=== PATIENT | male | born 1960 | race Caucasian/White ===

== ENCOUNTER 2021-11-02 15:35 | Observation (INO) | payer OTHER ==
[2021-11-02] MEDS ORDERED: CALCIUM GLUCONATE 10% - 1,000 MG/10 ML VIAL IVPUSH ONE (16:36)
[2021-11-02] MEDS ORDERED: CALCIUM GLUC IN NACL, ISO-OSM 1 GM/50 ML BAG IVPB ONE (16:41)
[2021-11-02] MEDS ORDERED: ACETAMINOPHEN 1000 MG/100 ML BAG IVPB ONE (16:57)
[2021-11-02 17:14] LABS: BASO % 0.9 % (0-2.0); EOS % 1.1 % (0-4.5); HEMATOCRIT 36.3 % (35.4-49); HEMOGLOBIN 12.4 GM/dL (11.7-16.9); LYMPH % 29.9 % (8-40); MCH 29.2 pg (25.7-33.7); MCHC 34.2 g/dl (32.0-35.9); MEAN CELL VOLUME 85.4 fl (80-96); MEAN PLT VOLUME 9.4 fl (7.5-11.1); MONO % 9.8 % (3.8-10.2); NEUT % 58.3 % (42.8-82.8); PLATELET COUNT 206 10^3/uL (134-434); RBC 4.25 M/mm3 (4.00-5.60); RDW 13.7 % (11.9-15.9); WHITE BLOOD COUNT 7.3 K/mm3 (4.0-10.0)
[2021-11-02] MEDS ORDERED: ACETAMINOPHEN INJECTION 100 ML IVPB ONE (17:18)
[2021-11-02 17:20] LABS: INR 1.09 (0.83-1.09); PROTHROMBIN TIME (PATIENT) 12.6 SEC (9.7-13.0)
[2021-11-02 17:29] LABS: MAGNESIUM 1.8 mg/dL (1.8-2.4)
[2021-11-02 17:31] LABS: CALCIUM 8.9 mg/dL (8.5-10.1)
[2021-11-02 17:32] LABS: ALBUMIN 3.7 g/dl (3.4-5.0); BLOOD UREA NITROGEN 25.2 mg/dL (7-18)
[2021-11-02 17:35] LABS: CREATININE 1.5 mg/dL (0.55-1.3)
[2021-11-02 17:36] LABS: BILIRUBIN,TOTAL 0.4 mg/dL (0.2-1)
[2021-11-02] MEDS ORDERED: SODIUM CHLORIDE 1,000 ML IV STA (18:13)
[2021-11-03] MEDS ORDERED: HEPARIN NA (PORCINE) 5,000 UNITS/ML 1ML VIAL SQ SCH (06:15)
[2021-11-03] MEDS: INSULIN SLIDING SCALE (NOVOLOG) 1 VIAL SQ SCH ×3 (07:03→16:10)
[2021-11-03] MEDS: SODIUM CHLORIDE 1,000 ML IV SCH ×2 (07:07→18:11)
[2021-11-03 08:26] VITALS: BMI 25.7
[2021-11-03] MEDS: CARVEDILOL 6.25 MG TABLET (FP) PO SCH (09:21)
[2021-11-03] MEDS ORDERED: ENOXAPARIN NA (PORCINE) 40 MG/0.4 ML DISP.SYRIN SQ SCH ×2 (10:00)
[2021-11-03 10:55] LABS: URINE APPEARANCE CLEAR; URINE BILIRUBIN NEGATIVE (NEGATIVE); URINE COLOR YELLOW; URINE GLUCOSE (UA) NEGATIVE (NEGATIVE); URINE KETONE NEGATIVE (NEGATIVE); URINE LEUK ESTERASE NEGATIVE (NEGATIVE); URINE NITRITE NEGATIVE (NEGATIVE); URINE PROTEIN NEGATIVE (NEGATIVE); URINE UROBILINOGEN 0.2 mg/dL (0.2-1.0)
[2021-11-03 12:15] LABS: BASO % 0.9 % (0-2.0); EOS % 1.1 % (0-4.5); HEMATOCRIT 38.6 % (35.4-49); HEMOGLOBIN 13.1 GM/dL (11.7-16.9); LYMPH % 31.7 % (8-40); MCH 29.1 pg (25.7-33.7); MEAN CELL VOLUME 85.6 fl (80-96); MEAN PLT VOLUME 9.2 fl (7.5-11.1); MONO % 9.7 % (3.8-10.2); NEUT % 56.6 % (42.8-82.8); PLATELET COUNT 206 10^3/uL (134-434); RBC 4.51 M/mm3 (4.00-5.60); RDW 13.8 % (11.9-15.9); WHITE BLOOD COUNT 5.7 K/mm3 (4.0-10.0)
[2021-11-03 12:42] LABS: CALCIUM 8.9 mg/dL (8.5-10.1)
[2021-11-03 12:43] LABS: ALBUMIN 3.6 g/dl (3.4-5.0); MAGNESIUM 1.8 mg/dL (1.8-2.4)
[2021-11-03 12:46] LABS: CREATININE 1.2 mg/dL (0.55-1.3); PHOSPHOROUS 3.3 mg/dL (2.5-4.9)
[2021-11-03 12:47] LABS: BILIRUBIN,TOTAL 0.5 mg/dL (0.2-1); TOT PROT 6.7 g/dl (6.4-8.2)
[2021-11-03] MEDS: HEPARIN NA (PORCINE) 5,000 UNITS/ML 1ML VIAL SQ SCH ×2 (13:59→21:31)
[2021-11-03] MEDS ORDERED: ACETAMINOPHEN 325 MG TABLET (FP) PO PRN (20:45)
[2021-11-03] MEDS: POLYETHYLENE GLYCOL (HEALTHYLAX) 3350 17 GM PACKET PO SCH (21:31)
[2021-11-03] MEDS ORDERED: DOCUSATE SODIUM 100 MG CAPSULE (FP) PO SCH (22:00)
[2021-11-04] MEDS: HEPARIN NA (PORCINE) 5,000 UNITS/ML 1ML VIAL SQ SCH ×2 (05:55→13:32)
[2021-11-04] MEDS: INSULIN SLIDING SCALE (NOVOLOG) 1 VIAL SQ SCH ×3 (06:09→16:28)
[2021-11-04] MEDS: SODIUM CHLORIDE 1,000 ML IV SCH (07:48)
[2021-11-04 08:34] VITALS: TEMP 98.3
[2021-11-04 08:47] LABS: HEMATOCRIT 39.3 % (35.4-49); MCH 28.5 pg (25.7-33.7); MCHC 33.2 g/dl (32.0-35.9); MEAN CELL VOLUME 85.8 fl (80-96); MEAN PLT VOLUME 9.2 fl (7.5-11.1); PLATELET COUNT 210 10^3/uL (134-434); RBC 4.58 M/mm3 (4.00-5.60); RDW 13.6 % (11.9-15.9); WHITE BLOOD COUNT 5.3 K/mm3 (4.0-10.0)
[2021-11-04 09:22] LABS: CALCIUM 8.9 mg/dL (8.5-10.1)
[2021-11-04 09:23] LABS: ALBUMIN 3.6 g/dl (3.4-5.0); BLOOD UREA NITROGEN 18.4 mg/dL (7-18)
[2021-11-04 09:26] LABS: CREATININE 1.2 mg/dL (0.55-1.3)
[2021-11-04 09:27] LABS: TOT PROT 6.8 g/dl (6.4-8.2)
[2021-11-04 09:28] LABS: BILIRUBIN,TOTAL 0.5 mg/dL (0.2-1)
[2021-11-04] MEDS: CARVEDILOL 6.25 MG TABLET (FP) PO SCH (09:49)
[2021-11-04] MEDS: POLYETHYLENE GLYCOL (HEALTHYLAX) 3350 17 GM PACKET PO SCH (09:49)
[2021-11-04] MEDS ORDERED: FENOFIBRIC ACID 45 MG CAP PO SCH (10:00)
[2021-11-04 16:21] VITALS: BP 138/71; PULSE 63; RESP 20
== END 2021-11-04 16:53 | disposition home or self-care (01) ==
LOC: JER 15:35 → JERBED 23:32 → INTOOBSV 23:32 → UNDOADMOB 23:32 → J6S 11-03 05:31 → JERBED 11-03 05:31 → J6S 11-03 05:59
PROVIDERS: ADMIT Hospitalist; ATTEND Internal Medicine
PROC: 3E033NZ Introduction of Analgesics, Hypnotics, Sedatives into Peripheral Vein, Percutaneous Approach (ICD-10-PCS; principal; 2021-11-03)
PROC: 3E033GC Introduction of Other Therapeutic Substance into Peripheral Vein, Percutaneous Approach (ICD-10-PCS; 2021-11-03)
PROC: 3E023GC Introduction of Other Therapeutic Substance into Muscle, Percutaneous Approach (ICD-10-PCS; 2021-11-03)
PROC: 3E0337Z Introduction of Electrolytic and Water Balance Substance into Peripheral Vein, Percutaneous Approach (ICD-10-PCS; 2021-11-03)
DX: N17.9 Acute kidney failure, unspecified (principal); I10 Essential (primary) hypertension; E11.9 Type 2 diabetes mellitus without complications; R10.9 Unspecified abdominal pain
CPT/HCPCS: 0241U-QW; 36415; 71046-TC-FY; 74177-TC; 76705-TC; 80053; 81003; 82272; 82570; 82962; 83605; 83690; 83735; 84100; 84132; 84300; 84439; 84443; 84481; 84484; 85025; 85027; 85610; 93005; 93010; 96361; 96372; 96374; 96375; 99285-25; G0378; J1644; Q9967

== ENCOUNTER 2022-02-01 11:11 | Day surgery (SDC) | payer OTHER ==
[2022-02-01 11:38] VITALS: RESP 18; BMI 25.8
[2022-02-01 12:45] VITALS: TEMP 97
[2022-02-01 13:06] VITALS: BP 110/64; PULSE 61
== END 2022-02-01 13:10 | disposition home or self-care (01) ==
LOC: FASU-ENDO 11:11
PROVIDERS: ATTEND Internal Medicine Gastroenterology
PROC: 0DJD8ZZ Inspection of Lower Intestinal Tract, Via Natural or Artificial Opening Endoscopic (ICD-10-PCS; principal; 2022-02-01 12:10)
DX: Z12.11 Encounter for screening for malignant neoplasm of colon (principal); Z86.010 Personal history of colon polyps; K64.1 Second degree hemorrhoids